=== PATIENT | female | born 1980 | race Caucasian/White ===

== ENCOUNTER 2017-03-23 23:02 | Emergency (ER) | payer OTHER ==
--- NOTE | 2017-03-23 23:26 | EDPHY ---
H & P Stated Complaint: dyspnea, SOB x2h, heavy period, blood draw today Time Seen by Provider: 03/23/17 23:14 HPI/ROS: HPI The patient presents with dyspnea for the last 2-3 days which started slowly and has gotten progressively worse and is worse with exertion. She feels like she may be anemic. Today, she developed a severe headache while doing laundry and at the same time felt that she could not catch her breath. She felt generally dizzy and describes tingling of her arms and legs. She says her whole body feels heavy and she is having difficulty walking because of this. She is on the 5th day of her menses. There more heavy than usual as she recently stopped taking any hormone therapy for dysmenorrhea. She has pelvic congestion syndrome and has plans for hysterectomy next month. REVIEW OF SYSTEMS Constitutional: No fever, no chills. Eyes: No discharge. ENT: No sore throat. Cardiovascular: No chest pain, no palpitations. Respiratory: No cough, positive for shortness of breath. Gastrointestinal: No abdominal pain, no vomiting. Genitourinary: No hematuria. Musculoskeletal: No back pain. Skin: No rashes. Neurological: No headache. PMHx: Pelvic congestion syndrome, iron deficiency anemia Soc Hx: Lives at home with and 2 kids PHYSICAL General Appearance: Alert, no distress Eyes: Pupils equal and round no pallor or injection ENT, Mouth: Mucous membranes moist Respiratory: There are no retractions, lungs are clear to auscultation Cardiovascular: Regular rate and rhythm Gastrointestinal: Abdomen is soft and non-tender, no masses, bowel sounds normal Neurological: A&O, moves all extremities Skin: Warm and dry, no rashes Musculoskeletal: Neck is supple non tender Extremities: symmetrical, 5/5 strength upper and lower extremities, sensation intact to light touch Psychiatric: Patient is oriented X 3, there is no agitation Source: Patient, Family Exam Limitations: No limitations - Personal History LMP (Females 10-55): Now Current Tetanus/Diphtheria Vaccine: Yes Current Tetanus Diphtheria and Acellular Pertussis (TDAP): Yes Tetanus Vaccine Date: within 10 years - Medical/Surgical History Hx Asthma: No Hx Chronic Respiratory Disease: No Hx Diabetes: No Hx Cardiac Disease: No Hx Renal Disease: No Hx Cirrhosis: No Hx Alcoholism: No Hx HIV/AIDS: No Hx Splenectomy or Spleen Trauma: No Other PMH: breast augmentation, rosacea, anemia, pelvic congestion - Social History Smoking Status: Never smoked Constitutional: Initial Vital Signs Temperature (C) 36.8 C 03/23/17 23:04 Heart Rate 113 H 03/23/17 23:04 Respiratory Rate 20 03/23/17 23:04 Blood Pressure 126/91 H 03/23/17 23:04 O2 Sat (%) 100 03/23/17 23:04 O2 Delivery Mode Room Air Allergies/Adverse Reactions: No Known Allergies Allergy (Verified 03/26/16 18:54) Home Medications: Medication Instructions Recorded Herbals/Supplements -Info Only 1 ea PO DAILY 03/10/17 Multivitamins [Multivitamin (*)] 1 each PO DAILY 03/10/17 valACYclovir [Valtrex (*)] 500 mg PO BID 03/10/17 IRON 03/23/17 Medical Decision Making - Diagnostics EKG Interpretation: EKG: Complete interpretation has been separately recorded in the [employer] archive. Summary impression: Normal sinus rhythm Imaging Results: Imaging Impressions Chest X-Ray 03/23/17 23:40 Impression: No acute abnormality. Differential Diagnosis: This is a 36-year-old female with pelvic congestion syndrome and history of iron deficiency anemia who presents from home with multiple symptoms including progressive dyspnea, headache, dizziness, paresthesias in arms and legs. The patient was monitored in the emergency room with complete improvement in her symptoms. She was given a L of IV fluids for presumed volume depletion as well as a small dose of Ativan IV. Labs were checked and were unremarkable including a D-dimer. Chest x-ray and EKG were also normal. I believe her symptoms could be related to anxiety. I doubt pulmonary embolism though I have consider this. I doubt electrolyte disturbance or anemia given her normal lab tests. She will be discharged from the emergency room and I have discussed with her some coping mechanisms if her symptoms return. - Data Points Laboratory Results: Laboratory Results 03/23/17 23:53 03/23/17 23:53 03/23/17 03/23/17 03/23/17 23:53 23:53 23:53 WBC 6.87 10^3/uL 10^3/uL (3.80-9.50) RBC 4.49 10^6/uL 10^6/uL (4.18-5.33) Hgb 14.3 g/dL g/dL (12.6-16.3) Hct 40.0 % % (38.0-47.0) MCV 89.1 fL fL (81.5-99.8) MCH 31.8 pg pg (27.9-34.1) MCHC 35.8 g/dL g/dL (32.4-36.7) RDW 11.9 % % (11.5-15.2) Plt Count 328 10^3/uL D 10^3/uL (150-400) MPV 8.9 fL fL (8.7-11.7) Neut % (Auto) 45.6 % % (39.3-74.2) Lymph % (Auto) 47.6 % H % (15.0-45.0) [place] % (Auto) 4.5 % % (4.5-13.0) Eos % (Auto) 1.9 % % (0.6-7.6) Baso % (Auto) 0.3 % % (0.3-1.7) Nucleat RBC Rel Count 0.0 % % (0.0-0.2) Absolute Neuts (auto) 3.13 10^3/uL 10^3/uL (1.70-6.50) Absolute Lymphs (auto) 3.27 10^3/uL H 10^3/uL (1.00-3.00) Absolute Monos (auto) 0.31 10^3/uL 10^3/uL (0.30-0.80) Absolute Eos (auto) 0.13 10^3/uL 10^3/uL (0.03-0.40) Absolute Basos (auto) 0.02 10^3/uL 10^3/uL (0.02-0.10) Absolute Nucleated RBC 0.00 10^3/uL 10^3/uL (0-0.01) Immature Gran % 0.1 % % (0.0-1.1) Immature Gran # 0.01 10^3/uL 10^3/uL (0.00-0.10) D-Dimer < 0.27 ug/mLFEU ug/mLFEU (0.00-0.50) Sodium 143 mEq/L mEq/L (134-144) Potassium 3.8 mEq/L mEq/L (3.5-5.2) Chloride 109 mEq/L mEq/L (97-110) Carbon Dioxide 20 mEq/l L mEq/l (22-31) Anion Gap 14 mEq/L mEq/L (8-16) BUN 16 mg/dL mg/dL (7-23) Creatinine 0.7 mg/dL mg/dL (0.6-1.0) Estimated GFR > 60 Glucose 99 mg/dL mg/dL (70-100) Calcium 10.3 mg/dL mg/dL (8.5-10.4) Total Bilirubin 0.7 mg/dL mg/dL (0.1-1.4) AST 31 IU/L IU/L (14-46) ALT 30 IU/L IU/L (9-52) Alkaline Phosphatase 79 IU/L IU/L (38-126) Total Protein 8.3 g/dL H g/dL (6.3-8.2) Albumin 4.8 g/dL g/dL (3.5-5.0) Medications Given: Discontinued Medications Sodium Chloride (Ns) 1,000 mls @ 0 mls/hr IV ONCE ONE PRN Reason: Wide Open Stop: 03/23/17 23:40 Last Admin: 03/23/17 23:54 Dose: 1,000 mls Lorazepam (Ativan Injection) 0.5 mg IVP EDNOW ONE Stop: 03/23/17 23:40 Last Admin: 03/23/17 23:54 Dose: 0.5 mg Departure - Departure Disposition: Home, Routine, Self-Care Clinical Impression: Anxiety, Shortness of breath, Paresthesia Condition: Good Instructions: Anxiety (ED), Anxiolysis in Adults (ED) Additional Instructions: Please return to the emergency room if your worse in any way. Otherwise you should follow up with your doctor in the next few days. Referrals: UNKNOWN,PCP [Other] - As per Instructions
[2017-03-23] MEDS ORDERED: NS 1,000 ML IV ONE (23:39)
[2017-03-23] MEDS ORDERED: LORazepam 2 MG/ML INJ IVP ONE (23:39)
[2017-03-24 00:05] LABS: % IMMATURE GRANULYOCYTES 0.1 % (0.0-1.1); ABSOLUTE IMMATURE GRANULOCYTES 0.01 10^3/uL (0.00-0.10); ADD DIFF? NO; ADD MORPH? NO; ADD SCAN? NO; ATYPICAL LYMPHOCYTE FLAG 0 (0-99); FRAGMENT RBC FLAG 0 (0-99); HEMOGLOBIN 14.3 g/dL (12.6-16.3); LEFT SHIFT FLG 0 (0-99); LIPEMIA HEMOLYSIS FLAG 90 (0-99); MEAN CELL HEMOGLOBIN 31.8 pg (27.9-34.1); MEAN CELL HEMOGLOBIN CONCENTR. 35.8 g/dL (32.4-36.7); MEAN CELL VOLUME 89.1 fL (81.5-99.8); MEAN PLATELET VOLUME 8.9 fL (8.7-11.7); PLATELET CLUMPS FLAG 20 (0-99); PLATELET COUNT 328 10^3/uL (150-400); RED BLOOD CELL COUNT 4.49 10^6/uL (4.18-5.33); RED CELL DISTRIBUTION WIDTH 11.9 % (11.5-15.2)
--- NOTE | 2017-03-24 00:08 | CPEKG ---
Heart Rate: 97 RR Interval: 619 P-R Interval: 124 QRSD Interval: 94 QT Interval: 376 QTC Interval: 478 P [place]: 39 QRS [place]: 62 T Wave [place]: 64 EKG Severity - NORMAL ECG - EKG Impression: SINUS RHYTHM Electronically Signed By: Lynnette Spears 24-Mar-2017 07:10:52
[2017-03-24 00:30] LABS: ALANINE AMINOTRANSFERASE 30 IU/L (9-52); ALBUMIN 4.8 g/dL (3.5-5.0); ALKALINE PHOSPHATASE 79 IU/L (38-126); ANION GAP 14 mEq/L (8-16); ASPARTATE AMINOTRANSFERASE 31 IU/L (14-46); BILIRUBIN,TOTAL 0.7 mg/dL (0.1-1.4); CALCIUM 10.3 mg/dL (8.5-10.4); CARBON DIOXIDE 20 mEq/l (22-31); CHLORIDE 109 mEq/L (97-110); CREATININE 0.7 mg/dL (0.6-1.0); GLOMERULAR FILTRATION RATE > 60; GLUCOSE 99 mg/dL (70-100); POTASSIUM 3.8 mEq/L (3.5-5.2); SODIUM 143 mEq/L (134-144); TOTAL PROTEIN 8.3 g/dL (6.3-8.2)
[2017-03-24 01:49] VITALS: BP 103/60; PULSE 88; RESP 18; TEMP 98.1; O2SAT 96
== END 2017-03-24 01:50 | disposition home or self-care (01) ==
DX: F41.9 Anxiety disorder, unspecified (principal)
CPT/HCPCS: 96374; J2060

== ENCOUNTER 2017-03-25 10:08 | Emergency (ER) | payer OTHER ==
--- NOTE | 2017-03-25 10:49 | CPEKG ---
Heart Rate: 74 RR Interval: 811 P-R Interval: 136 QRSD Interval: 90 QT Interval: 392 QTC Interval: 435 P [place]: 51 QRS [place]: 35 T Wave [place]: 65 EKG Severity - NORMAL ECG - EKG Impression: SINUS RHYTHM Electronically Signed By: Karthik Whitaker 25-Mar-2017 16:31:04
[2017-03-25] MEDS ORDERED: LORazepam 2 MG/ML INJ ONE (10:50)
[2017-03-25] MEDS ORDERED: LORazepam 2 MG/ML INJ IVP ONE (10:51)
--- NOTE | 2017-03-25 10:55 | EDPHY ---
H & P Stated Complaint: exertional sob seen 2 days ago seen for same/dx panic/anxiety Time Seen by Provider: 03/25/17 10:27 HPI/ROS: CHIEF COMPLAINT: "I am still short of breath" HISTORY OF PRESENT ILLNESS: 36-year-old female history of pelvic congestion syndrome, no history of thromboembolic disorder, seen the ER 2 days ago for same complaints of dyspnea, evaluated at time with a negative D-dimer. Patient returns today via private vehicle stating that she spoke with her sister who is a nurse mooner recommended she return to the ER for evaluation and rule out of pulmonary embolus. She notes continued symptoms, notably continue dyspnea, bilateral upper and lower extremity paresthesias. No headache but notes continued dyspnea. No chest pain. No syncope or near syncope. She has plans for hysterectomy next month by Dr. Natalia Sanchez due to her history of pelvic congestion. PRIMARY CARE PROVIDER: NADYA Goff REVIEW OF SYSTEMS: A ten point review of systems was performed and is negative with the exception of the items mentioned in the HPI PAST MEDICAL & SURGICAL HISTORY: Pelvic congestion syndrome. Anemia. SOCIAL HISTORY: nonsmoker PHYSICAL EXAM (Prior to examination, patient consented to physical exam, hands were washed and my usual and customary physical exam procedures followed) 1) GENERAL: Well-developed, well-nourished, alert and oriented. Appears anxious. 2) HEAD: Normocephalic, atraumatic 3) HEENT: Pupils equal, round, reactive to light bilaterally. Sclera anicteric. Nasopharynx, oropharynx, clear, no lesions. Moist mucous membranes 4) NECK: Full range of motion, no meningeal signs. 5) LUNGS: Clear auscultation bilaterally, no wheezes, no rhonchi, no retractions. 6) HEART: Regular rate and rhythm, no murmur, no heave, no gallop. 7) ABDOMEN: No guarding, no rebound, no focal tenderness, negative McBurney's, negative Kincaid's, negative Rovsing's, negative peritoneal sign, unable to elicit abdominal pain 8) MUSCULOSKELETAL: Moving all extremities, no focal areas of tenderness, no obvious trauma. No peripheral edema or discoloration. 9) BACK: No CVA tenderness, no midline vertebral tenderness, no fluctuance, no step-off, no obvious trauma, no visual or palpable abnormality. 10) SKIN: No rash, no petechiae. 11) Psychiatric: Patient is oriented X 3, there is no agitation. 12) NEURO: Awake, alert, and oriented to person, place and time. Answers questions appropriately. There were no obvious focal neurologic abnormalities. No cerebellar dysfunction. Normal steady gait. Upper and lower extremities bilaterally with strength 5 / 5, reflexes 2+. DIFFERENTIAL DIAGNOSIS: in no particular order including but not limited to cardiac arrhythmia, pulmonary embolus, anxiety - Personal History LMP (Females 10-55): 1-7 Days Ago Current Tetanus/Diphtheria Vaccine: Yes Tetanus Vaccine Date: within 10 years - Medical/Surgical History Hx Asthma: No Hx Chronic Respiratory Disease: No Hx Diabetes: No Hx Cardiac Disease: No Hx Renal Disease: No Hx Cirrhosis: No Hx Alcoholism: No Hx HIV/AIDS: No Hx Splenectomy or Spleen Trauma: No Other PMH: breast augmentation, rosacea, anemia, pelvic congestion - Social History Smoking Status: Never smoked Constitutional: Initial Vital Signs Temperature (C) 36.7 C 03/25/17 10:12 Heart Rate 86 03/25/17 10:12 Respiratory Rate 22 H 03/25/17 10:12 Blood Pressure 124/87 H 03/25/17 10:12 O2 Sat (%) 100 03/25/17 10:12 O2 Delivery Mode Room Air Allergies/Adverse Reactions: No Known Allergies Allergy (Verified 03/25/17 10:12) Home Medications: Medication Instructions Recorded Herbals/Supplements -Info Only 1 ea PO DAILY 03/10/17 Multivitamins [Multivitamin (*)] 1 each PO DAILY 03/10/17 valACYclovir [Valtrex (*)] 500 mg PO BID 03/10/17 IRON 03/23/17 LORazepam [Ativan 1 mg (RX)] 1 mg PO Q6 PRN #7 tab 03/25/17 Medical Decision Making - Diagnostics Imaging Results: Imaging Impressions Chest/Thorax CTA 03/25/17 11:06 Impression: 1. No visible pulmonary embolus. 2. 3 mm right lower lobe nodule of doubtful clinical significance. If the patient is low risk, no further follow up is recommended. If the patient has history of smoking or malignancy, a one-year follow-up CT chest is considered optional per Fleischner Society guidelines. 3. Additional findings as above. Findings discussed with José Childs on 03/25/2017 at 12:16 p.m. ED Course/Re-evaluation: 10:55 a.m.: I have reviewed the patient's old medical records. We discussed her negative D-dimer. She has continued symptoms however, she is tachypneic. We discussed indications risks benefits of CT imaging and she consents. 12:41 p.m.: Re-evaluation. Discussed her negative CT angiography of chest showing no PE. She is resting comfortably at this time, respiratory rate is normalized after Ativan 1 mg. I think pulmonary embolus is less than likely in this patient. We discussed possibility that her symptoms could be related to anxiety. I think that this is definitely a possibility given her presenting symptoms. I think the patient can be discharged at this time. Recommend she follow up with her primary care provider next week (today is Tuesday). Given a small prescription for Ativan. Discussed with patient I do not recommend medium or long-term usage of benzodiazepines. 1 - Data Points Laboratory Results: Laboratory Results 03/25/17 10:47 03/25/17 10:47 03/25/17 03/25/17 03/25/17 10:47 10:47 10:47 WBC RBC Hgb Hct MCV MCH MCHC RDW Plt Count MPV Neut % (Auto) Lymph % (Auto) [place] % (Auto) Eos % (Auto) Baso % (Auto) Nucleat RBC Rel Count Absolute Neuts (auto) Absolute Lymphs (auto) Absolute Monos (auto) Absolute Eos (auto) Absolute Basos (auto) Absolute Nucleated RBC Immature Gran % Immature Gran # Sodium 141 mEq/L mEq/L (134-144) Potassium 4.1 mEq/L mEq/L (3.5-5.2) Chloride 110 mEq/L mEq/L (97-110) Carbon Dioxide 21 mEq/l L mEq/l (22-31) Anion Gap 10 mEq/L mEq/L (8-16) BUN 15 mg/dL mg/dL (7-23) Creatinine 0.7 mg/dL mg/dL (0.6-1.0) Estimated GFR > 60 Glucose 92 mg/dL mg/dL (70-100) Calcium 9.8 mg/dL mg/dL (8.5-10.4) TSH 0.828 uIU/mL uIU/mL (0.465-4.680) Beta HCG, Qual NEGATIVE 03/25/17 10:47 WBC 4.54 10^3/uL 10^3/uL (3.80-9.50) RBC 4.91 10^6/uL 10^6/uL (4.18-5.33) Hgb 15.3 g/dL g/dL (12.6-16.3) Hct 43.2 % % (38.0-47.0) MCV 88.0 fL fL (81.5-99.8) MCH 31.2 pg pg (27.9-34.1) MCHC 35.4 g/dL g/dL (32.4-36.7) RDW 11.9 % % (11.5-15.2) Plt Count 296 10^3/uL 10^3/uL (150-400) MPV 8.6 fL L fL (8.7-11.7) Neut % (Auto) 55.8 % % (39.3-74.2) Lymph % (Auto) 36.1 % % (15.0-45.0) [place] % (Auto) 5.5 % % (4.5-13.0) Eos % (Auto) 2.2 % % (0.6-7.6) Baso % (Auto) 0.4 % % (0.3-1.7) Nucleat RBC Rel Count 0.0 % % (0.0-0.2) Absolute Neuts (auto) 2.53 10^3/uL 10^3/uL (1.70-6.50) Absolute Lymphs (auto) 1.64 10^3/uL 10^3/uL (1.00-3.00) Absolute Monos (auto) 0.25 10^3/uL L 10^3/uL (0.30-0.80) Absolute Eos (auto) 0.10 10^3/uL 10^3/uL (0.03-0.40) Absolute Basos (auto) 0.02 10^3/uL 10^3/uL (0.02-0.10) Absolute Nucleated RBC 0.00 10^3/uL 10^3/uL (0-0.01) Immature Gran % 0.0 % % (0.0-1.1) Immature Gran # 0.00 10^3/uL 10^3/uL (0.00-0.10) Sodium Potassium Chloride Carbon Dioxide Anion Gap BUN Creatinine Estimated GFR Glucose Calcium TSH Beta HCG, Qual Medications Given: Discontinued Medications Lorazepam (Ativan Injection) 1 mg IVP EDNOW ONE Stop: 03/25/17 10:52 Last Admin: 03/25/17 11:19 Dose: 1 mg Departure - Departure Disposition: Home, Routine, Self-Care Clinical Impression: Anxiety Dyspnea Qualifiers: Dyspnea type: unspecified Qualified Code(s): R06.00 - Dyspnea, unspecified Condition: Good Instructions: Dyspnea (ED) Additional Instructions: Return to the ER if you develop new return of chest pain, dyspnea or any other symptoms that concern you Referrals: Follow-up, with your primary care provider in 3-4 days [Other] - As per Instructions Prescriptions: LORazepam [Ativan 1 mg (RX)] 1 mg PO Q6 PRN #7 tab PRN Reason: Anxiety
[2017-03-25 10:56] LABS: ADD DIFF? NO; ADD MORPH? NO; ADD SCAN? NO; ATYPICAL LYMPHOCYTE FLAG 40 (0-99); FRAGMENT RBC FLAG 0 (0-99); HEMATOCRIT 43.2 % (38.0-47.0); HEMOGLOBIN 15.3 g/dL (12.6-16.3); LEFT SHIFT FLG 0 (0-99); LIPEMIA HEMOLYSIS FLAG 90 (0-99); MEAN CELL HEMOGLOBIN 31.2 pg (27.9-34.1); MEAN CELL HEMOGLOBIN CONCENTR. 35.4 g/dL (32.4-36.7); MEAN PLATELET VOLUME 8.6 fL (8.7-11.7); PLATELET CLUMPS FLAG 10 (0-99); PLATELET COUNT 296 10^3/uL (150-400); RED BLOOD CELL COUNT 4.91 10^6/uL (4.18-5.33); RED CELL DISTRIBUTION WIDTH 11.9 % (11.5-15.2)
[2017-03-25 11:09] LABS: ANION GAP 10 mEq/L (8-16); CALCIUM 9.8 mg/dL (8.5-10.4); CARBON DIOXIDE 21 mEq/l (22-31); CHLORIDE 110 mEq/L (97-110); CREATININE 0.7 mg/dL (0.6-1.0); GLOMERULAR FILTRATION RATE > 60; GLUCOSE 92 mg/dL (70-100); POTASSIUM 4.1 mEq/L (3.5-5.2); SODIUM 141 mEq/L (134-144)
[2017-03-25] MEDS ORDERED: IOPAMIDOL (ISOVUE 370) 100 ML BTL IV ONE (11:32)
[2017-03-25 12:37] VITALS: PULSE 80; RESP 14; O2SAT 94
[2017-03-25 12:59] VITALS: BP 133/78; TEMP 97.9
== END 2017-03-25 12:58 | disposition home or self-care (01) ==
DX: R06.00 Dyspnea, unspecified (principal); F41.9 Anxiety disorder, unspecified
CPT/HCPCS: 96374; J2060; Q9967

== ENCOUNTER 2017-04-18 05:45 | Observation (INO) | payer OTHER ==
--- NOTE | 2017-04-06 19:35 | GHP ---
[f rep st] PREOP HISTORY AND PHYSICAL DATE OF ADMISSION: 04/18/2017 PLANNED PROCEDURE: Total laparoscopic hysterectomy with bilateral salpingectomy. PREOPERATIVE DIAGNOSES: 1. Pelvic congestion syndrome. 2. Menorrhagia. 3. Dysmenorrhea. 4. Chronic pelvic pain. INDICATIONS: Patient is a 36-year-old 2 para 2-0-0-2, who has a longstanding history of del y heavy periods, in had significant vulvar varicosities. Since delivery she has leg aches , and pelvic pressure the week before her period. She had a consultation with Dr. Gaming, intervention al radiologist, about uterine artery embolization and vein ablation. Her insurance denied that surg lesly. In June patient was diagnosed with anemia after a fainting and tachycardia episode. Her anna ritin was 29. Patient has been seeing multiple providers for alternative therapy, and management op tions have been extensively discussed with the patient. Patient has persistent, incredibly heavy pe riods, and cramping between her periods. She also has been diagnosed with pelvic congestion syndrom e. Patient has failed medical therapy, and has been very frustrated with the overall process. Love ent tried control pills, which caused weight gain, mood swings, decreased libido, no improveme nt in her period, and she developed mid cycle bleeding. She discontinued that and tried bioidentica l hormones, which caused significant mood swings, and she states she was a hormonal mess. Patient h as never tried a Mirena IUD, but she is uncomfortable with trying hormones again due to her history of trying multiple control pills and other hormone options, and is uncomfortable with the idea of a foreign object being in her body. Patient is complaining of consistent cramping, incredibly p ainful periods, and heavy, heavy periods. She had an endometrial biopsy which was negative. Manage ment options have been extensively reviewed with the patient, including endometrial ablation, Mirena IUD, control pills, and a hysterectomy. Patient is requesting definitive therapy with a tota l laparoscopic hysterectomy with bilateral salpingectomy. Risks and benefits have been extensively reviewed with the patient and her , and patient wishes to proceed. PAST MEDICAL HISTORY: Significant for anemia, history of kidney stones, history of anxiety, dysmeno rrhea, pelvic congestion syndrome, fatigue, a history of kidney stones. MEDICATIONS: Iron, probiotics, B12, multivitamins, Valtrex, magnesium, B12. She is no longer on te stosterone. PAST SURGICAL HISTORY: Breast augmentation in 1996, ureteral stents in 2009 placed during for her hydronephrosis and kidney stones. ALLERGIES: No known drug allergies. 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 She lives with her and her two children. She denies tobacco, alcohol, or drug use. She does drink caffeine. FAMILY HISTORY: Family medical history is a sister with atypical ductal hyperplasia of her breasts, a grandmother with a history of ovarian cancer, father with heart disease and history of stroke, si ster with kidney disease. 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 Periods every 27 days lasting 4-6 days, they are very heavy. She has significant clotting and cramping. She is a 2, para 2-0-0-2. In 2009 she had a spo ntaneous vaginal delivery, the was complicated by needing ureteral stents for kidney stone s. In 2011 she had a spontaneous vaginal delivery. She had kidney stones in the but did not require ureteral stents. Patient does have a history of pelvic inflammatory disease when she wa s 15. She does have herpes. Denies any history of any other sexually transmitted diseases. REVIEW OF SYSTEMS: A 10-point review of systems is negative with the exception of the above mention ed pertinent positives. PHYSICAL EXAM: VITAL SIGNS: Stable. Her blood pressure is 102/70, her weight is 136.2. GENERAL AP PEARANCE: Alert and oriented x3. PSYCH: Appropriate affect. NECK: Her neck is mobile and supple , and no thyromegaly is noted. LUNGS: Clear to auscultation bilaterally. HEART: Rate is regular. ABDOMEN: Soft, nondistended, nontender. EXTREMITIES: Reveal no calf tenderness or edema. PELVI C: Reveals a mobile, midposition uterus with no adnexal masses. LABORATORY DATA: Endometrial biopsy was performed, which shows early secretory phase endometrium. Pelvic ultrasound measures 8.2 x 4 x 3.4 cm, and adnexa are unremarkable. ASSESSMENT AND PLAN: A 36-year-old 2 para 2-0-0-2, with menorrhagia and pelvic congestion s yndrome, dysmenorrhea and chronic pelvic pain. She is electing to proceed with a total laparoscopic hysterectomy with bilateral salpingectomy. Risks and benefits have been extensively reviewed with the patient, and she has been properly consented. /[id number]/MODL
[2017-04-18] MEDS ORDERED: ceFAZolin 2 GM/DEXTROSE 100 ML IV ONE (06:00)
[2017-04-18] MEDS ORDERED: LIDOCAINE 1% 2 ML INJ ONE (06:38)
[2017-04-18] MEDS ORDERED: BUPIVACAINE 0.5% 30 ML SDV ONE (06:39)
[2017-04-18] MEDS ORDERED: PROPOFOL 200 MG/20 ML VIAL ONE ×2 (06:54→08:31)
[2017-04-18] MEDS ORDERED: fentaNYL 100 MCG/2 ML INJ ONE ×3 (07:01→10:17)
[2017-04-18] MEDS ORDERED: MIDAZOLAM 2 MG/2 ML VIAL ONE (07:06)
[2017-04-18] MEDS ORDERED: METHYLENE BLUE 0.5% 50 MG/10 ML AMP ONE (09:13)
[2017-04-18] MEDS ORDERED: MIDAZOLAM 2 MG/2 ML VIAL IVP ONE (10:15)
[2017-04-18] MEDS ORDERED: POLYETHYLENE GLYCOL 3350 17 GM PKT PO PRN (10:55)
[2017-04-18] MEDS ORDERED: BISACODYL 10 MG SUPP PR PRN (10:55)
[2017-04-18] MEDS ORDERED: LACTULOSE 20 GM/30 ML UDCUP PO PRN (10:55)
[2017-04-18] MEDS ORDERED: MAGNESIUM HYDROXIDE 30 ML UDCUP PO PRN (10:55)
[2017-04-18] MEDS ORDERED: LR 1,000 ML IV SCH (11:00)
--- NOTE | 2017-04-18 11:02 | POSTOPPROG ---
Post Op Note Date of Operation: 04/18/17 Surgeon: Natalia Sanchez Claims Correspondence Clerk: hayden levi Anesthesiologist: Pre-op Diagnosis: chronic pelvic pain, pelvic congestion, menorrhagia, dysmenorrhea Post-op Diagnosis: same Procedure: total laparoscopic hysterectomy with bilateral salpingectomy and cystoscopy Inf/Abcess present in the surg proc area at time of surgery?: No EBL: 50-100 Specimen(s): uterus, cervix and bilateral tubes
[2017-04-18] MEDS ORDERED: LIDOCAINE 1% 5 ML SDV ID PRN (11:12)
[2017-04-18] MEDS ORDERED: LR 1,000 ML IV ONE (11:12)
[2017-04-18] MEDS: KETOROLAC 30 MG/1 ML SDV IVP SCH ×2 (11:23→18:00)
[2017-04-18] MEDS: HYDROmorphONE/DILAUDID 1 MG/ML SYR IVP PRN ×5 (11:24→19:10)
[2017-04-18] MEDS: ONDANSETRON 4 MG/2 ML VIAL IVP PRN ×2 (11:56→11:58)
--- NOTE | 2017-04-18 12:19 | GOP ---
[f rep st] OPERATIVE REPORT DATE OF OPERATION: 04/18/2017 SURGEON: Natalia Sanchez DO STEPDOWN NURSE: Marisol Rojas MD ANESTHESIA: General endotracheal tube. PREOPERATIVE DIAGNOSIS: 1. Pelvic congestion cyst syndrome. 2. Menorrhagia. 3. Chronic pelvic pain. 4. Dysmenorrhea. POSTOPERATIVE DIAGNOSIS: 1. Pelvic congestion cyst syndrome. 2. Menorrhagia. 3. Chronic pelvic pain. 4. Dysmenorrhea. PROCEDURE PERFORMED: Total laparoscopic hysterectomy with bilateral salpingectomy and cystoscopy. FINDINGS: 1. Exam under anesthesia: Mobile, midposition uterus with no adnexal masses. 1. Laparoscopic findings: Unremarkable ovaries, uterus, and tubes. Uterus possibly consistent wit h adenomyosis. 2. SPECIMENS: Uterus, cervix, and fallopian tubes. ESTIMATED BLOOD LOSS: 50 cc. INDICATIONS: Patient is a 36-year-old, 2, para 2-0-0-2, who has a longstanding history of v lesly heavy periods and she had significant vulvar varicosities in . The patient has signifi cant leg aches and pelvic pressure the week before her period. She had a consultation for uterine a rtery embolization and vein ablation; however, insurance denied that surgery. We had a long discuss ion about management options. She has tried and failed medical therapy. She continues to have sign ificant cramping and is very uncomfortable the week before her cycle, and her periods are very painf ul. She is requesting definitive therapy with hysterectomy. Risks and benefits were reviewed with the patient. The patient was properly consented. DESCRIPTION OF PROCEDURE: The patient was taken to the operating room with intravenous fluids in pl maggie. She was then placed on the operating room table in the dorsal supine position, where general a nesthesia was obtained. She was then repositioned into the dorsal lithotomy position with the Yello fin stirrups and prepped and draped in a normal sterile fashion. Exam under anesthesia revealed a m obile mid position uterus with no adnexal masses. A speculum was then placed in the patient's vagin a. A single-tooth tenaculum was used to grasp the anterior lip of the cervix, and the cervix was th en sounded to 7.5 cm. The cervix was noted to be medium sized. The JIGAR uterine manipulator with a medium-sized metal colpotomy ring was assembled with a 6 cm tip. The JIGAR was then assembled and i nserted without difficulty after both balloons were tested. Attention was then turned to the patien t's abdomen, where a 5 mm skin incision was then made in the umbilicus. The abdomen was then insuff lated with CO2 gas until an adequate pneumoperitoneum was achieved. The area underneath the trocar insertion site was explored and found to be unremarkable. A 5 mm skin incision was then made in the patient's right lower quadrant under direct visualization. A 10 mm skin incision was then made in the left lower quadrant and a 10 mm trocar was advanced into the patient's abdomen under direct visu alization. The patient was then placed in Trendelenburg position and the abdomen and pelvis were ex plored. Upper abdomen was unremarkable. The appendix was identified and was noted to be unremarkab le. The fallopian tubes were unremarkable. Ovaries were unremarkable. The uterus was noted to be most likely consistent with adenomyosis. The colpotomy ring was easily visualized and a left salpin gectomy was performed with the LigaSure. The left round ligament was then clamped and transected an d the anterior and posterior leaflet of the broad ligament were then clamped, cauterized, and transe cted. The bladder flap was created anteriorly and the uterine arteries were skeletonized on the lef t side and transected. Attention was then turned to the right side, where the salpingectomy was per formed. The round ligament was clamped, cauterized, and transected. Anterior and posterior leaflet of the broad ligament were clamped, cauterized, and transected. Bladder flap was created anteriorl y and the uterine arteries were clamped, cauterized, and transected. Bilateral peristalsis of the u reters was noted prior to the beginning of the surgery and following completion of this portion. Th e colpotomy ring was palpated and easily visualized. The Harmonic Scalpel was then used to perform the colpotomy. The uterus was then withdrawn through the and a lap sponge in a glove was then inserted in the vagina to maintain pneumoperitoneum. The 0 Vicryl V-Loc suture was then used to close the vaginal cuff. Went fci across the vaginal cuff with the 1 V-Loc suture. A second V-Loc suture was then used to close the remainder of the vaginal cuff. Hemostasis was assured. The re was a small area of bleeding on the patient's right side of the vaginal cuff, and this was monito red. The right ureter was easily visualized. The left ureter we had difficulty visualizing, so we performed a cystoscopy and flow was noted from bilateral ureteral orifices. The attention was then turned again to the vaginal cuff. The right side was further cauterized with the LigaSure and Arist a powder was applied to the cuff. Hemostasis was then assured. The 10 mm trocar was then removed f rom the patient's abdomen and the fascial closure device was inserted and the fascia was closed with an 0 Vicryl suture. CO2 gas was expressed from the trocars and, again, the vaginal cuff remained h emostatic. The skin incisions were then closed of all the trocar insertion sites and the patient wa s returned to the dorsal supine position. Speculum exam was performed. Vaginal cuff was well suspe nded and intact. No bleeding was noted. The patient was returned to the dorsal supine position, wh ere she was easily awoken from anesthesia. Sponge count was correct. The patient was transferred t o recovery room in stable condition. /[id number]/MODL
[2017-04-18] MEDS ORDERED: HYDROmorphONE/DILAUDID 6 MG/30 ML PCA IV PRN (13:39)
[2017-04-18] MEDS ORDERED: NALOXONE HCL 0.4 MG/ML INJ IVP PRN (13:39)
[2017-04-18] MEDS: DIAZEPAM 10 MG/2 ML SYR IVP PRN ×2 (15:20→21:00)
[2017-04-18 19:25] VITALS: RESP 16
[2017-04-18] MEDS: HYDROCODONE/APAP 5/325 TAB PO PRN (19:50)
[2017-04-18] MEDS: SENNOSIDES/DOCUSATE SODIUM TAB PO SCH (20:58)
[2017-04-18] MEDS: valACYclovir 500 MG TAB PO SCH (20:58)
[2017-04-19] MEDS: KETOROLAC 30 MG/1 ML SDV IVP SCH ×2 (00:02→06:07)
[2017-04-19] MEDS: HYDROCODONE/APAP 5/325 TAB PO PRN ×3 (00:03→08:58)
[2017-04-19 05:12] LABS: HEMOGLOBIN 12.6 g/dL (12.6-16.3)
[2017-04-19] MEDS: SENNOSIDES/DOCUSATE SODIUM TAB PO SCH (09:09)
[2017-04-19] MEDS: valACYclovir 500 MG TAB PO SCH (09:11)
--- NOTE | 2017-04-19 09:23 | SOAPPROG ---
Downtime Inpatient MD Late Entry SOAP Note: Due to computer downtime, I am recreating the following medical record entry as of this date and time based on the information specified below: Information on which this medical record entry is based: (MD: Please list items, such as nursing notes, labs, imaging, etcetera) on pod# 0 patient was having pain management issues and anxiety. improved with valium and once zapata was removed. will try po pain meds and increase activity.
--- NOTE | 2017-04-19 09:26 | SOAPPROG ---
SOAP Progress Note Assessment/Plan: Assessment: pod#1 s/p TLH BS uncomplicated post operative course Plan: discharge instructions 04/19/17 09:23 Subjective: patient is doing well. pain is well controlled now. had significant pain last night but once zapata was removed and patient was able to void her pain went away. tolerating oral pain meds. scant vaginal bleeding. passing gas. tolerating diet. ambulating. ready to go home! Objective: Vital Signs Temp Pulse Resp BP Pulse Ox 36.8 C 71 16 88/55 L 98 04/19/17 04:00 04/19/17 04:00 04/19/17 04:00 04/19/17 04:00 04/19/17 04:00 Laboratory Results 04/19/17 05:00 04/18/17 04/19/17 04/20/17 05:59 05:59 05:59 Intake Total 750 Output Total 2100 Balance -1350 Physical Exam - Physical Exam General Appearance: WD/WN, alert, no apparent distress Respiratory: chest non-tender, lungs clear, normal breath sounds Cardiac/Chest: normal peripheral pulses, regular rate, rhythm Abdomen: normal bowel sounds, non-tender, soft Skin: normal color, warm/dry, other (incicisions covered with steri strips) Extremities: normal range of motion, non-tender, normal inspection, normal capillary refill Neuro/Psych: no motor/sensory deficits, alert, normal mood/affect, oriented x 3 ICD10 Worksheet Patient Problems: Problems Problem Status Onset Menorrhagia Acute S/P laparoscopic hysterectomy Acute Menorrhagia Acute
[2017-04-19 11:02] VITALS: BP 88/61; PULSE 73; TEMP 98.7; O2SAT 97
[2017-04-19] MEDS ORDERED: IBUPROFEN 600 MG TAB PO SCH (12:00)
== END 2017-04-19 12:00 | disposition home or self-care (01) ==
LOC: F3E 05:45 → FOB 11:30
PROVIDERS: ADMIT Obstetrics & Gynecology; ATTEND Obstetrics & Gynecology
PROC: 0UT74ZZ Resection of Bilateral Fallopian Tubes, Percutaneous Endoscopic Approach (ICD-10-PCS; principal; 2017-04-18 07:15)
PROC: 0UT94ZZ Resection of Uterus, Percutaneous Endoscopic Approach (ICD-10-PCS; principal; 2017-04-18 07:15)
PROC: 0UT24ZZ Resection of Bilateral Ovaries, Percutaneous Endoscopic Approach (ICD-10-PCS; principal; 2017-04-18 07:15)
DX: N94.89 Other specified conditions associated with female genital organs and menstrual cycle (principal); N92.0 Excessive and frequent menstruation with regular cycle; N94.6 Dysmenorrhea, unspecified; R10.2 Pelvic and perineal pain
CPT/HCPCS: 58571; G0378; J0690; J1170; J1885; J2250; J2405; J2704; J3010; Q9968

== ENCOUNTER → 2019-01-17 | Outpatient (CLI) | payer BC ==
[~2019-01-17] MED LIST: IOPAMIDOL (ISOVUE-300) 100 ML BTL ONE
== END ==
LOC: FIMAGING 13:57
PROVIDERS: ATTEND Urology
DX: N20.0 Calculus of kidney (principal)
CPT/HCPCS: Q9967

== ENCOUNTER → 2019-04-16 | Outpatient (CLI) | payer BC | LOC: FIMAGING 15:36 ==